=== PATIENT | male | born 1955 | race Caucasian/White ===

== ENCOUNTER 2017-02-11 08:48 | Day surgery (SDC) | payer MEDICARE ==
[~2017-02-11 08:48] MED LIST: LACTATED RINGERS 1,000 ML IV SCH
[2017-02-11 09:27] VITALS: RESP 18; TEMP 97.8
[2017-02-11] MEDS ORDERED: LIDOCAINE 1% 20 ML VIAL (10MG/ML) FOR IV START INTRADERMA ONE (09:30)
[2017-02-11 09:37] LABS: Glucose,Whole Blood 122 mg/dL (75-99)
[2017-02-11] MEDS ORDERED: TRIAMCINOLONE ACETONIDE 40 MG/ML 1 ML VIAL ONE (09:53)
[2017-02-11] MEDS ORDERED: MIDAZOLAM 2 MG/2 ML VIAL ONE (09:53)
[2017-02-11] MEDS ORDERED: fentaNYL (PF) 50 MCG/ML 2 ML AMP ONE (09:53)
[2017-02-11] MEDS ORDERED: BUPIVACAINE (PF) 0.5% 30 ML VIAL ONE (09:53)
--- NOTE | 2017-02-11 10:10 | P.PCN ---
Date of Procedure: 02/11/17 Procedure(s) Performed: PREOPERATIVE DIAGNOSIS : 1- Lumbar spondylosis with Facet Arthropathy without myelopathy . 2- Lumber degenerative disc disease POSTOPERATIVE DIAGNOSIS: 1- Lumbar spondylosis with Facet Arthropathy without myelopathy . 2- Lumber degenerative disc disease PROCEDURE: Diagnostic Right L3 -4 , L4 -5 , and L5-S1 medial branch block under fluoroscopy ANESTHESIA: Local with 1% lidocaine 6 ml ; IV sedation with Versed 2 mg and Fentanyl 100 mcg. EBL: Minimal COMPLICATION: None. IV FLUIDS: 100 mL of normal saline. PROCEDURE INDICATION: Chronic low back pain secondary to Facet arthropathy unresponsive to conservative treatment. PROCEDURE DESCRIPTION: the patient was seen and identified in the preop holding area , risks and benefits and possible complications of the procedure and alternative were discussed with the patient, and the patient agreed to proceed with the procedure and signed the consent IV was started and vital signs monitored during the procedure and fluoroscopy was used to maximize the benefit and accuracy of the needle placement, and sedation was given to decrease patient anxiety, patient was taken to the procedure room and placed in prone position vital signs monitored in the back prepped with chlorhexidine X3 then under strict sterile technique using a right oblique fluoroscopy ,the junction of the transverse process and the superior articulating process of the right L3- 4 , L4- 5, and L5-S1 vertebra which corresponding to the fluoroscopy image of the eye of the Chris dog on the block side for the medial branches and subsequently , after local infiltration of skin and subcu tissuies with lidocaine 1% one mL at each level ,then 22- gauge Quincke-type needles , 3 needle was used , each one of them placed at the junction of the base of the transverse process and the superior articular process at the appropriate level, and the needle was advanced until the periosteum contacted, needle placement confirmed with AP oblique and lateral view and after appropriate needle placement confirmed, and after negative aspiration for heme and CSF and there was no paresthesia 1-1/2 mL of Marcaine 0.5% mixed with 40 mg Kenalog , then half mL injected at each level after negative aspiration the needle subsequently removed intact. At the end of the procedure and the needles removed and a bandage applied after the skin was cleaned the cleaning solution patient taken to recovery room in stable condition and monitors in the recovery room for 20-30 minutes and discharged home in stable condition after discharge criteria met and patient will follow up with the pain clinic in 2-4 weeks
[2017-02-11] MEDS ORDERED: IV FLUID CONTINUATION 1,000 ML IV ONE (10:12)
--- NOTE | 2017-02-11 10:14 | FL ---
FLUOROSCOPY 3 seconds of fluoroscopy time were utilized during Pain Injection. 2 images document the procedure.
[2017-02-11 10:30] VITALS: BP 119/71; PULSE 70
== END 2017-02-11 10:53 | disposition home or self-care (01) ==
LOC: ORPAIN 08:48
PROVIDERS: ATTEND Specialist
DX: G89.29 Other chronic pain (principal); M47.816 Spondylosis without myelopathy or radiculopathy, lumbar region; M46.96 Unspecified inflammatory spondylopathy, lumbar region; M51.36 Other intervertebral disc degeneration, lumbar region; Z91.030 Bee allergy status; Z91.048 Other nonmedicinal substance allergy status
CPT/HCPCS: 64493; 64494; 64495; J2250; J3301; J3010

== ENCOUNTER → 2017-02-15 | Outpatient (CLI) | payer MEDICARE ==
--- NOTE | 2017-02-15 18:32 | MR ---
EXAMINATION TYPE: MR brain wo con DATE OF EXAM: 02/15/2017 6:00 PM COMPARISON: NONE HISTORY: Some memory loss, loss of hearing Left side, TECHNIQUE: Multiplanar, multisequence imaging of the brain and brainstem is performed without IV cont rast. FINDINGS: Diffusion weighted images demonstrate no evidence of a recent infarct or other diffusion abnormality. There is no extraaxial fluid collection or significant white matter signal abnormality. The ventricu lar system and cisternal spaces are normal in size and appearance. The brain volume is age appropria te. Midline structures demonstrate normal morphology. The craniocervical junction appears within normal limits. Normal vascular flow voids are present. The visualized sinuses are clear and the globes are i ntact. IMPRESSION: No significant finding is seen to account for patient's symptoms.
== END | disposition home or self-care (01) ==
LOC: RADMRIMAIN 17:32
PROVIDERS: ATTEND Family Medicine
DX: R41.3 Other amnesia (principal)
CPT/HCPCS: 70551

== ENCOUNTER → 2017-03-11 | Day surgery (SDC) | payer MEDICARE ==
[2017-03-01 10:00] VITALS: BMI 27.0
[~2017-03-11] MED LIST changes: +BUPIVACAINE (PF) 0.5% 30 ML VIAL ONE; +IV FLUID CONTINUATION 1,000 ML IV ONE; +LIDOCAINE 1% 20 ML VIAL (10MG/ML) FOR IV START INTRADERMA ONE; +MIDAZOLAM 2 MG/2 ML VIAL ONE; +TRIAMCINOLONE ACETONIDE 40 MG/ML 1 ML VIAL ONE; +fentaNYL (PF) 50 MCG/ML 2 ML AMP ONE
[2017-03-11 07:54] VITALS: TEMP 96.7
[2017-03-11 08:01] LABS: Glucose,Whole Blood 120 mg/dL (75-99)
--- NOTE | 2017-03-11 09:14 | P.PCN ---
Date of Procedure: 03/11/17 Preoperative Diagnosis: Postoperative Diagnosis: Procedure(s) Performed: PREOPERATIVE DIAGNOSIS : 1- Lumbar spondylosis with Facet Arthropathy without myelopathy . 2- Lumber degenerative disc disease POSTOPERATIVE DIAGNOSIS: 1- Lumbar spondylosis with Facet Arthropathy without myelopathy . 2- Lumber degenerative disc disease PROCEDURE: Diagnostic bilateral L3 -4 , L4 -5 , and L5-S1 medial branch block under fluoroscopy ANESTHESIA: Local with 1% lidocaine 6 ml ; IV sedation with Versed 2 mg and Fentanyl 100 mcg. EBL: Minimal COMPLICATION: None. IV FLUIDS: 100 mL of normal saline. PROCEDURE INDICATION: Chronic low back pain secondary to Facet arthropathy unresponsive to conservative treatment. Patient had the diagnostic block done on the right side 1 month ago, but he reported that a few days after the injection on started complaining of severe pain in both sides in the lumbar area , and examination was positive for facet loading test bilaterally, for this reason we discussed with the patient the option of doing diagnostic block bilaterally, PROCEDURE DESCRIPTION: the patient was seen and identified in the preop holding area , risks and benefits and possible complications of the procedure and alternative were discussed with the patient, and the patient agreed to proceed with the procedure and signed the consent IV was started and vital signs monitored during the procedure and fluoroscopy was used to maximize the benefit and accuracy of the needle placement, and sedation was given to decrease patient anxiety, patient was taken to the procedure room and placed in prone position vital signs monitored in the back prepped with chlorhexidine X3 then under strict sterile technique using a right oblique fluoroscopy ,the junction of the transverse process and the superior articulating process of the right L3- 4 , L4- 5, and L5-S1 vertebra which corresponding to the fluoroscopy image of the eye of the Chris dog on the block side for the medial branches and subsequently , after local infiltration of skin and subcu tissuies with lidocaine 1% one mL at each level ,then 22- gauge Quincke-type needles , 3 needle was used , each one of them placed at the junction of the base of the transverse process and the superior articular process at the appropriate level, and the needle was advanced until the periosteum contacted, needle placement confirmed with AP oblique and lateral view and after appropriate needle placement confirmed, and after negative aspiration for heme and CSF and there was no paresthesia 1-1/2 mL of Marcaine 0.5% mixed with 20 mg Kenalog , then half mL injected at each level after negative aspiration the needle subsequently removed and the same procedure repeated for the left side at left side at L3-4, L4- 5 and L5-S1 levels. At the end of the procedure and the needles removed and a bandage applied after the skin was cleaned the cleaning solution patient taken to recovery room in stable condition and monitors in the recovery room for 20-30 minutes and discharged home in stable condition after discharge criteria met and patient will follow up with the pain clinic in 2-4 weeks , if patient get good pain relief after the diagnostic block today ,then next visit we can do radiofrequency ablation of the medial branch lumbar area right side , before we can do the radiofrequency on the left side ,then we have to do second diagnostic block on the left side Implants: Indications for Procedure: Operative Findings: Description of Procedure:
[2017-03-11 09:30] VITALS: RESP 18
--- NOTE | 2017-03-11 09:30 | FL ---
EXAMINATION TYPE: FL guided pain mgmt statistic DATE OF EXAM: 03/11/2017 CLINICAL HISTORY: Low back pain. TECHNIQUE: Fluoroscopy. COMPARISON: None. FINDINGS: Fluoroscopic guidance was provided during pain relief procedure performed by Dr. Castanon . A total of 20 seconds of fluoroscopic time was utilized during the procedure and 4 spot images are acquired. Images acquired shows needle localization at multiple levels in the lower lumbar spine. IMPRESSION: As Above.
[2017-03-11 09:52] VITALS: BP 110/66; PULSE 63
[2017-03-11 10:09] LABS: Glucose,Whole Blood 115 mg/dL (75-99)
== END ==
LOC: ORPAIN 07:28
PROVIDERS: ATTEND Specialist
DX: G89.29 Other chronic pain (principal); M47.816 Spondylosis without myelopathy or radiculopathy, lumbar region; M46.96 Unspecified inflammatory spondylopathy, lumbar region; M51.36 Other intervertebral disc degeneration, lumbar region
CPT/HCPCS: 64493; 64494; 64495; 99152; 99153; J2250; J3301; J3010

== ENCOUNTER 2017-04-18 06:50 | Day surgery (SDC) | payer MEDICARE ==
[2017-04-13 09:09] VITALS: BMI 26.1
[2017-04-18] MEDS ORDERED: LACTATED RINGERS 1,000 ML IV SCH (07:30)
[2017-04-18 07:39] VITALS: RESP 16
[2017-04-18 07:40] VITALS: TEMP 97.7
[2017-04-18] MEDS ORDERED: LIDOCAINE 1% 20 ML VIAL (10MG/ML) FOR IV START INTRADERMA ONE (07:54)
[2017-04-18 08:00] LABS: Glucose,Whole Blood 123 mg/dL (75-99)
[2017-04-18] MEDS ORDERED: IV FLUID CONTINUATION 1,000 ML IV ONE (08:53)
--- NOTE | 2017-04-18 09:04 | FL ---
EXAMINATION TYPE: FL guided pain mgmt statistic DATE OF EXAM: 04/18/2017 CLINICAL HISTORY: Low back pain. TECHNIQUE: Fluoroscopy. COMPARISON: None. FINDINGS: Fluoroscopic guidance was provided during pain relief procedure performed by Dr. Hi . A total of 11 seconds of fluoroscopic time was utilized during the procedure and 3 spot images are ac quired. Images acquired shows needle localization at several levels off the midline in the lower lum bar spine. IMPRESSION: As Above.
[2017-04-18 09:38] VITALS: BP 117/68; PULSE 69
--- NOTE | 2017-04-18 10:04 | P.PCN ---
Date of Procedure: 04/18/17 Preoperative Diagnosis: Postoperative Diagnosis: Procedure(s) Performed: Implants: Surgeon: Christopher Hi Pathology: none sent Condition: stable Disposition: PACU Indications for Procedure: Operative Findings: Description of Procedure: PREOPERATIVE DIAGNOSIS: Lumbar spondylosis without myelopathy and facet arthropathy POSTOPERATIVE DIAGNOSIS: Lumbar spondylosis without myelopathy and facet arthropathy PROCEDURES: Right Radiofrequency thermocoagulation, L3-L4, L4-L5, and L5-S1 medial branch, with fluoroscopic guidance. ANESTHESIA: 1% lidocaine plain; Conscious sedation with versed/fentanyl EBL: Minimal PROCEDURE INDICATION: The patient with low back pain secondary to lumbar arthropathy who had more than 50% relief of pain with previous diagnostic lumbar medial branch block with bupivacaine. Patient presents for lumbar RFA today; no use of blood thinners. PROCEDURE DESCRIPTION / TECHNIQUE: The patient was seen and identified in the preoperative area. Risks, benefits, complications, and alternatives were discussed with the patient (including but not limited to incomplete pain relief , bleeding, infection, nerve damage, and allergies to medications), the patient agreed to proceed with the procedure and signed the consent after all questions were answered. Patient was taken to the OR and time out was completed to verify proper patient , position, laterality of pain, and allergies. Pt was placed in the prone position. IV was started. Vital signs remained stable throughout the procedure. A pillow was placed under the patients chest to decrease lordosis. The lumbosacral area was prepped and draped in the usual sterile fashion. Vital signs were closely monitored during the procedure. Conscious sedation was used during the procedure to decrease patients anxiety. Using AP and then oblique fluoroscopy, the eye of the Chris dog corresponding to the connection between the superior and transverse articular processes of right L4, L5 and top of the sacrum were identified, marked, and localized with 1% lidocaine. Subsequently, an 18 gauge, 100-mm radiofrequency cannula with a 10-mm active tip was advanced guided by fluoroscopy to each of the eyes of the Chris dog at right L3, L4, and L5 medial branches. Each site then underwent sensory testing at 50 Hz and 0 to 1 volt and motor testing at 2 Hz and 0 to 3 volt with local stimulation, but no radicular symptoms down the legs. Thereafter the right L3, L4, and L5 medial branch sites underwent radiofrequency thermocoagulation at 80 degrees Celsius for 90 seconds after injecting 0.5 ml of PF lidocaine 1%. After thermocoagulation, 1 ml of the block solution containing Kenalog 40 mg and 2 mL of preservative-free normal saline was injected at the right L3, L4, and L5 medial branch levels after negative aspiration of CSF and blood and with no paresthesias. Cannulas were retracted while injecting lidocaine 1% until the needles were removed. At the end of the procedure, the skin was cleansed and bandages were applied. COMPLICATIONS: No acute complications. DISPOSITION / PLANS: The patient was placed in a supine position and transferred to the recovery area in a stable condition for observation and was discharged from the recovery room after meeting discharge criteria. Home discharge instructions given to the patient by the staff. The patient was reexamined prior to discharge. The patient will schedule a left L3-S1 medial branch block in 4-6 weeks.
== END 2017-04-18 09:44 | disposition home or self-care (01) ==
LOC: ORPAIN 06:50
PROVIDERS: ATTEND Anesthesiology
DX: M47.816 Spondylosis without myelopathy or radiculopathy, lumbar region (principal); M46.96 Unspecified inflammatory spondylopathy, lumbar region; I10 Essential (primary) hypertension; E78.5 Hyperlipidemia, unspecified; Z79.1 Long term (current) use of non-steroidal anti-inflammatories (NSAID); Z79.82 Long term (current) use of aspirin; Z79.891 Long term (current) use of opiate analgesic; Z79.899 Other long term (current) drug therapy; Z91.030 Bee allergy status; Z91.048 Other nonmedicinal substance allergy status
CPT/HCPCS: 64635; 64636; 99152; J2250; J3010

== ENCOUNTER 2017-05-10 07:27 | Day surgery (SDC) | payer MEDICARE ==
[2017-05-03 15:57] VITALS: BMI 25.8
[~2017-05-10 07:27] MED LIST changes: -BUPIVACAINE (PF) 0.5% 30 ML VIAL ONE; -IV FLUID CONTINUATION 1,000 ML IV ONE; -LIDOCAINE 1% 20 ML VIAL (10MG/ML) FOR IV START INTRADERMA ONE; -MIDAZOLAM 2 MG/2 ML VIAL ONE; -TRIAMCINOLONE ACETONIDE 40 MG/ML 1 ML VIAL ONE; -fentaNYL (PF) 50 MCG/ML 2 ML AMP ONE
[2017-05-10 07:58] VITALS: TEMP 97.9
[2017-05-10] MEDS ORDERED: LIDOCAINE 1% 20 ML VIAL (10MG/ML) FOR IV START INTRADERMA ONE (07:58)
[2017-05-10 07:59] LABS: Glucose,Whole Blood 154 mg/dL (75-99)
--- NOTE | 2017-05-10 08:45 | P.PCN ---
Date of Procedure: 05/10/17 Preoperative Diagnosis: Lumbar spondylosis without myelopathy Postoperative Diagnosis: Same as above Procedure(s) Performed: Left lumbar medial branch block under fluoroscopic guidance for levels L2, L3, L4, and the dorsal ramus of L5 Implants: Anesthesia: other (Moderate conscious sedation with IV Versed) Surgeon: Vianey Yost Pathology: none sent Condition: stable Disposition: PACU Indications for Procedure: Operative Findings: Description of Procedure: The patient was seen in preop holding area consent was obtained then he was brought into the procedure room and placed in prone position. Skin was prepped with ChloraPrep and draped in a sterile manner. Lidocaine 1% was used to numb the skin up at the target points that were chosen as follows: The L5-S1 level was done first by targeting the superior medial aspect of the sacral ala on the left side of the spine on the AP view of fluoroscopy which corresponds to the dorsal ramus of L5 on the left side. And for the L2,L3 and L4 medial branches the target points were at the connection between the transverse process and the superior articular process of L3,L4 and L5 vertebra respectively on the left oblique view of fluoroscopy. I used 22-gauge 3-1/2 inch Quincke spinal needle for this procedure and after contacting bone at the target points mentioned above I injected 1 mL of Marcaine 0.5%. I did not use any steroids for this procedure and also did not give any IV fentanyl. Patient tolerated procedure well.
[2017-05-10 08:55] VITALS: RESP 18
--- NOTE | 2017-05-10 08:56 | FL ---
EXAMINATION TYPE: FL guided pain mgmt statistic DATE OF EXAM: 05/10/2017 HISTORY: Flouroscopy time 5 seconds of fluoroscopy provided. IMPRESSION: 1. Fluoroscopy time.
[2017-05-10 09:11] VITALS: BP 120/71; PULSE 63
[2017-05-10] MEDS ORDERED: IV FLUID CONTINUATION 1,000 ML IV ONE (09:11)
== END 2017-05-10 09:21 | disposition home or self-care (01) ==
LOC: ORPAIN 07:27
PROVIDERS: ATTEND Anesthesiology
DX: M47.816 Spondylosis without myelopathy or radiculopathy, lumbar region (principal); E78.5 Hyperlipidemia, unspecified; I10 Essential (primary) hypertension; Z79.82 Long term (current) use of aspirin; Z79.899 Other long term (current) drug therapy; Z79.84 Long term (current) use of oral hypoglycemic drugs; Z79.1 Long term (current) use of non-steroidal anti-inflammatories (NSAID); Z79.891 Long term (current) use of opiate analgesic
CPT/HCPCS: 64493; 64494; 64495; J2250; 99152

== ENCOUNTER → 2017-06-08 | Day surgery (SDC) | payer MEDICARE ==
[2017-06-03 08:38] VITALS: BMI 25.8
[~2017-06-08] MED LIST changes: +IV FLUID CONTINUATION 1,000 ML IV ONE; +LACTATED RINGERS 1,000 ML IV ONE; -LACTATED RINGERS 1,000 ML IV SCH; +LIDOCAINE 1% 20 ML VIAL (10MG/ML) FOR IV START INTRADERMA ONE
[2017-06-08 08:05] VITALS: TEMP 97.8
[2017-06-08 08:18] LABS: Glucose,Whole Blood 135 mg/dL (75-99)
--- NOTE | 2017-06-08 09:24 | P.PCN ---
Date of Procedure: 06/08/17 Preoperative Diagnosis: Postoperative Diagnosis: Procedure(s) Performed: Implants: Surgeon: Vianey Yost Pathology: none sent Condition: stable Disposition: PACU Indications for Procedure: Operative Findings: Description of Procedure: PREOPERATIVE DIAGNOSIS: Lumbar spondylosis without myelopathy, morbid obesity POSTOPERATIVE DIAGNOSIS: Lumbar spondylosis without myelopathy,morbid obesity PROCEDURES : Left Radiofrequency thermocoagulation,L2-4, L3-L4, L4-L5, and L5- S1 medial branch, with fluoroscopic guidance ANESTHESIA: IV sedation with versed and fentaneyl and local infiltration with lidocaine 1% 5 ml EBL: Minimal PROCEDURE INDICATION: The patient with low back pain secondary to lumbar facet arthropathy who had more than 50% relief of her pain with previous diagnostic lumbar medial branch block with bupivacaine. PROCEDURE DESCRIPTION / TECHNIQUE: The patient was seen and identified in the preoperative area. Risks, benefits, complications, including but not limited to risk of infection ,bleeding , allergic reactions to the medications and no complete pain releife , and alternatives were discussed with the patient, the patient agreed to proceed with the procedure and signed the consent. IV was started. Vital signs remained stable throughout the procedure. Patient was taken to the OR and time out was completed. The patient was placed in the prone position on the procedure table. The lumber area was prepped and draped in the usual sterile fashion. . Vital signs were closely monitored during the procedure .IV sedation was used during the procedure to decrease patients anxiety. The target points were identified as follows: For the L5-S1 level which corresponds to the dorsal ramus of L5 the target point was at the superior medial aspect of the sacral ala on the left side of the spine on the AP view of fluoroscopy and for the L2, L3, and L4 medial branches the target points were at the connection between the transverse process and the superior articular process of L3, L4, and L5 vertebra respectively on the left oblique view of fluoroscopy. skin was marked, and localized with 1% lidocaineat these points. Subsequently, an 18 [id number] radiofrequency needles with a 10-mm curved active tips were advanced guided by fluoroscopy to each of the target points mentioned above in a superior medial direction to get the active tips as parallel as possible to the medial branches tracks. Each level then underwent motor testing at 2.5 Hz and 0 to 3 volt with local stimulation, but no radicular symptoms down the legs. Thereafter radiofrequency thermocoagulation at 80 degrees celsius for 90 seconds after injecting 1 ml of PF Marcaine 0.5%(3 mls) with 40 mg of Kenalog. At the end of the procedure, the skin was cleansed and bandages were applied. COMPLICATIONS: No acute complications. DISPOSITION / PLANS: The patient was placed in a supine position and transferred to the recovery area in a stable condition for observation and was discharged from the recovery room after meeting discharge criteria. Home discharge instructions given to the patient by the staff. The patient was reexamined prior to discharge. The patient will schedule a follow up in the clinic in 2-4 weeks.
[2017-06-08 09:36] VITALS: RESP 16
[2017-06-08 09:56] VITALS: BP 126/70; PULSE 66
--- NOTE | 2017-06-08 10:04 | FL ---
Fluoroscopy HISTORY: Pain 16 seconds fluoroscopy time supplied to the referring clinician. 3 intraoperative C-arm images docum ent the procedure. See dictated report from anesthesia.
--- NOTE | 2017-06-11 09:18 | CDI ---
Documentation Clarification OP Dear Dr. Yost, Please provide clarification regarding the type of sedation provided. The procedure note states IV Sedation with Versed and Fentanyl. The Pain Procedure Record has nothing checked or circled under Anesthesia Plan. Please clarify if GA/Unconscious sedation or Moderate/conscious sedation was provided. PLEASE RESPOND TO THIS QUERY BY DICTATING AN ADDENDUM TO YOUR PROCEDURE NOTE. Thank you for your assistance, KAERL Altman If you have any questions, please contact Amber Myers at [phone] [facility]
== END ==
LOC: ORPAIN 07:17
PROVIDERS: ATTEND Anesthesiology
DX: M47.816 Spondylosis without myelopathy or radiculopathy, lumbar region (principal); E66.01 Morbid (severe) obesity due to excess calories; Z68.25 Body mass index [BMI] 25.0-25.9, adult; I10 Essential (primary) hypertension; E11.9 Type 2 diabetes mellitus without complications
CPT/HCPCS: 99152; 99153; 64635; 64636 ×3; J2250; J3301; J3010

== ENCOUNTER → 2018-02-01 | Outpatient (CLI) | payer MEDICARE ==
--- NOTE | 2018-02-01 22:02 | US ---
EXAMINATION TYPE: US kidneys/renal and bladder DATE OF EXAM: 02/01/2018 COMPARISON: NONE CLINICAL HISTORY: 62-year-old male R94.4 Abnormal Results of Kidney Function Stuidies. Abnormal labs, diabetic, hx of renal stones with laser performed on right kidney TECHNIQUE: Multiple sonographic images of the kidneys and bladder are obtained. EXAM MEASUREMENTS: Right Kidney: 9.5 x 4.0 x 4.6 cm Left Kidney: 10.6 x 4.0 x 5.6 cm Right Kidney: Echogenic foci measuring up to 6 mm with no shadowing. However, these areas demonstrate twinkle artifact. No hydronephrosis. Left Kidney: No hydronephrosis. Bladder: Underdistention limits its evaluation. Bilateral Jets not seen IMPRESSION: 1. Numerous nonobstructive right-sided renal calculi measuring up to 6 mm. 2. No hydronephrosis on either side.
== END | disposition home or self-care (01) ==
LOC: RADUSWWP 14:38
PROVIDERS: ATTEND Family Medicine
DX: N20.0 Calculus of kidney (principal)
CPT/HCPCS: 76770

== ENCOUNTER → 2018-02-13 | Outpatient (CLI) | payer MEDICARE ==
[2018-02-13 12:21] VITALS: BP 109/68; PULSE 80; RESP 18
--- NOTE | 2018-02-13 12:42 | P.PN ---
Subjective Progress Note Date: 02/13/18 Principal diagnosis: Lumbar spondylosis without myelopathy This is a 62-year-old male with history of axial lower back pain that responded favorably to lumbar radio frequency ablation. The patient is here today for his lower back pain and for more recent neck pain. His pain on the left side of his neck that goes down to the left shoulder with no weakness in the upper or lower extremities and no bowel or bladder dysfunction. The neck pain does not wake him up at night. He denies any weight loss recently however his been following up for decreased kidney function lately. By physical exam he is alert oriented 3 in no apparent distress He has tenderness on the left side of his neck Neuro exam of the upper extremities showed normal muscle strength but absent deep tendon flexes bilaterally and symmetrically He has tenderness on both sides of his lumbar spine He has normal range of motion of the cervical spine with more pain with left rotation Objective - Vital Signs Vital signs: Vital Signs Temp Pulse 80 02/13/18 12:15 Resp 18 02/13/18 12:15 BP 109/68 02/13/18 12:15 Pulse Ox 96 02/13/18 12:15 Intake & Output 02/12/18 02/13/18 02/13/18 18:59 06:59 18:59 Weight 78.925 kg - Constitutional General appearance: Present: average body habitus - EENT Eyes: Present: PERRLA - Psychiatric Psychiatric: Present: A&O x's 3, appropriate affect, intact judgment & insight Assessment and Plan Plan: This is a 62-year-old male with the following diagnoses: Lumbar spondylosis without myelopathy Cervical spondylosis without myelopathy The patient has numbness in the right hand due to a carpal tunnel syndrome Diabetes mellitus Hypertension Kidney dysfunction He does have severe neck pain however with no neurologic changes in the upper or lower extremities. Regarding his neck pain I will order a cervical spine MRI without contrast For his lower back pain and since he responded to previous due to lumbar medial branch RFA I will schedule him to have right lumbar medial branch RFA as soon as possible. We will reevaluate the patient in a few weeks for his neck pain after we get the MRI results.
== END | disposition home or self-care (01) ==
LOC: PNWHC3 10:49
PROVIDERS: ATTEND Anesthesiology
DX: M47.816 Spondylosis without myelopathy or radiculopathy, lumbar region (principal); M47.812 Spondylosis without myelopathy or radiculopathy, cervical region; G56.03 Carpal tunnel syndrome, bilateral upper limbs; E11.9 Type 2 diabetes mellitus without complications; I10 Essential (primary) hypertension; N28.9 Disorder of kidney and ureter, unspecified
CPT/HCPCS: 99211

== ENCOUNTER → 2018-02-13 | Outpatient (CLI) | payer MEDICARE ==
--- NOTE | 2018-02-13 10:46 | XR ---
EXAMINATION TYPE: XR KUB DATE OF EXAM: 02/13/2018 10:23 AM CLINICAL HISTORY: Right-sided kidney stone. TECHNIQUE: Single supine KUB image of the abdomen is obtained. COMPARISON: Abdominal x-ray March 10, 2016. CT abdomen and pelvis February 19, 2016. FINDINGS: No definite nephrolithiasis on current study. Some rounded densities in the periphery could reflect ingested colonic food product or fecal debris as are seen bilaterally. There is vascular janett cification in the pelvis redemonstrated. There is left-sided pelvic phlebolith redemonstrated. There is overall nonobstructive bowel gas pattern. There is dextroconvex scoliosis with moderate to s evere multilevel spurring in the spine. Calcifications in the liver and spleen are partially imaged p resumed product of old granulomatous disease. IMPRESSION: No definitive new nephrolithiasis.
== END | disposition home or self-care (01) ==
LOC: RADXRMAIN 10:12
PROVIDERS: ATTEND Urology
DX: N20.0 Calculus of kidney (principal)
CPT/HCPCS: 74018

== ENCOUNTER → 2018-03-02 | Outpatient (CLI) | payer MEDICARE ==
--- NOTE | 2018-03-02 15:37 | XR ---
EXAMINATION TYPE: XR cervical spine limited DATE OF EXAM: 03/02/2018 COMPARISON: NONE HISTORY: Cephalgia radiating to shoulders TECHNIQUE: 4 view cervical spine FINDINGS: There is disc space narrowing C5-6 C6-7. Prevertebral space is normal. Posterior spinal sexton ellar line is intact. Tip of the odontoid is limited on the frontal view. Submental vertex view is mo re normal appearance. IMPRESSION: 1. Degenerative disc changes lower cervical spine.
== END | disposition home or self-care (01) ==
LOC: RADXRMAIN 14:53
PROVIDERS: ATTEND Anesthesiology
DX: M47.812 Spondylosis without myelopathy or radiculopathy, cervical region (principal)
CPT/HCPCS: 72040

== ENCOUNTER → 2018-03-10 | Outpatient (CLI) | payer MEDICARE ==
--- NOTE | 2018-03-10 10:21 | XR ---
EXAMINATION TYPE: XR KUB DATE OF EXAM: 03/10/2018 8:47 AM CLINICAL HISTORY: Lithotripsy on 03/06/2018. Right-sided nephrolithiasis. TECHNIQUE: Single supine KUB image of the abdomen is obtained. COMPARISON: 02/13/2018. FINDINGS: There appears to be 3 stable calculi that could represent gallstones or colonic debris. The se appear slightly cephalad to represent renal calculi, however renal calculi are possible. The large st measures 6 mm. No left-sided renal calculi are identified. Again there is a dextroscoliotic curvat ure of the lumbar spine and extensive degenerative changes. Moderate femoral acetabular arthropathy i s seen. Moderate amount of retained colonic stool is also noted in a nondilated colon. IMPRESSION: Three punctate right upper quadrant calculi appearing stable from the prior of 02/13/2018. These could represent cholelithiasis, colonic debris (less likely) or residual renal calculi. The largest measur es 6 mm.
== END | disposition home or self-care (01) ==
LOC: RADXRMAIN 08:34
PROVIDERS: ATTEND Urology
DX: N20.0 Calculus of kidney (principal)
CPT/HCPCS: 74018

== ENCOUNTER 2018-03-20 08:27 | Day surgery (SDC) | payer MEDICARE ==
[2018-03-15 10:29] VITALS: BMI 26.1
[~2018-03-20 08:27] MED LIST changes: -IV FLUID CONTINUATION 1,000 ML IV ONE; -LACTATED RINGERS 1,000 ML IV ONE; +LACTATED RINGERS 1,000 ML IV SCH; -LIDOCAINE 1% 20 ML VIAL (10MG/ML) FOR IV START INTRADERMA ONE
[2018-03-20] MEDS ORDERED: LIDOCAINE 1% 20 ML VIAL (10MG/ML) FOR IV START INTRADERMA ONE (08:42)
[2018-03-20 08:58] VITALS: TEMP 97
[2018-03-20 09:12] LABS: Glucose,Whole Blood 133 mg/dL (75-99)
--- NOTE | 2018-03-20 10:05 | P.PCN ---
Date of Procedure: 03/20/18 Procedure(s) Performed: PREOPERATIVE DIAGNOSIS: 1-Lumbar Spondylosis with Facet Arthropathy without myelopathy. 2- Lumber degenerative disc disease. POSTOPERATIVE DIAGNOSIS: 1- Lumbar Spondylosis with Facet Arthropathy without myelopathy. 2- Lumber degenerative disc disease. PROCEDURES : Right Radiofrequency thermocoagulation, L3-L4, L4-L5, and L5-S1 medial branch, with fluoroscopic guidance ANESTHESIA: Moderate sedation with intravenous versed 2 mg, and fentaneyl 100 mcg and local infiltration with lidocaine 1% 3 ml EBL: Minimal PROCEDURE INDICATION: The patient with low back pain secondary to lumbar facet arthropathy who had more than 50% relief of her pain with previous diagnostic lumbar medial branch block with bupivacaine. PROCEDURE DESCRIPTION / TECHNIQUE: The patient was seen and identified in the preoperative area. Risks, benefits, complications, including but not limited to risk of infection ,bleeding , allergic reactions to the medications and no complete pain releife , and alternatives were discussed with the patient, the patient agreed to proceed with the procedure and signed the consent. IV was started. Vital signs remained stable throughout the procedure. Patient was taken to the OR and time out was completed. The patient was placed in the prone position on the procedure table. The lumber area was prepped and draped in the usual sterile fashion. . Vital signs were closely monitored during the procedure .IV sedation was used during the procedure to decrease patients anxiety. Using AP and then oblique fluoroscopy, the ``eye of the Chris dog corresponding to the connection between the superior and transverse articular processes of right L3, L4, and L5 were identified, marked, and localized with 1 % lidocaine. Subsequently, a 18 -eu radiofrequency cannula with a 10- mm active tip was advanced guided by fluoroscopy to each of the ``eyes of the Chris dog at right L3, L4, and L5. Each site then underwent sensory testing at 50 Hz and 0 to 1 volt and motor testing at 2.5 Hz and 0 to 3 volt with local stimulation, but no radicular symptoms down the legs. Thereafter the right L3-4, L4-5, and L5-S1 sites underwent radiofrequency thermocoagulation at 80 degrees celsius for 90 seconds after injecting 0.5 ml of PF lidocaine 1%. then After the thermocoagulation done , 1 ml of the block solution containing Kenalog 40 mg and 3 ml of marcain 0.5% was injected at the right L3-4 , L4-5 , and L5-S1, levels after negative aspiration of CSF and blood and with no paresthesias. Cannulas were retracted while injecting lidocaine 1% until the needle is out. At the end of the procedure, the skin was cleansed and bandages were applied. COMPLICATIONS: No acute complications. DISPOSITION / PLANS: The patient was placed in a supine position and transferred to the recovery area in a stable condition for observation and was discharged from the recovery room after meeting discharge criteria. Home discharge instructions given to the patient by the staff. The patient was reexamined prior to discharge. The patient will schedule a follow up in the clinic in 2-4 weeks.
[2018-03-20] MEDS ORDERED: IV FLUID CONTINUATION 350 ML IV ONE (10:20)
[2018-03-20 10:26] VITALS: RESP 18
[2018-03-20 10:33] VITALS: BP 98/60; PULSE 69
--- NOTE | 2018-03-20 10:59 | FL ---
EXAMINATION TYPE: FL guided pain mgmt statistic DATE OF EXAM: 03/20/2018 CLINICAL HISTORY: Low back pain. TECHNIQUE: Fluoroscopy. COMPARISON: None. FINDINGS: Fluoroscopic guidance was provided during pain relief procedure performed by Dr. Castanon . A total of 4 seconds of fluoroscopic time was utilized during the procedure and 3 spot images are acquired. Images acquired shows needle localization at multiple levels in the lumbar spine. IMPRESSION: As Above.
== END 2018-03-20 10:50 | disposition home or self-care (01) ==
LOC: ORPAIN 08:27
PROVIDERS: ATTEND Specialist
DX: M47.816 Spondylosis without myelopathy or radiculopathy, lumbar region (principal); M51.36 Other intervertebral disc degeneration, lumbar region; I10 Essential (primary) hypertension; E11.9 Type 2 diabetes mellitus without complications; Z91.030 Bee allergy status; Z88.8 Allergy status to other drugs, medicaments and biological substances; Z91.048 Other nonmedicinal substance allergy status
CPT/HCPCS: 64635; 64636 ×2; J2250; J3301; J3010; 99152

== ENCOUNTER 2018-04-06 06:31 | Day surgery (SDC) | payer MEDICARE ==
[2018-03-30 16:04] VITALS: BMI 26.6
[2018-04-06] MEDS ORDERED: LACTATED RINGERS 1,000 ML IV SCH (07:15)
[2018-04-06 07:27] VITALS: TEMP 97.7
[2018-04-06] MEDS ORDERED: LIDOCAINE 1% 20 ML VIAL (10MG/ML) FOR IV START INTRADERMA ONE (07:28)
[2018-04-06 07:32] LABS: Glucose,Whole Blood 128 mg/dL (75-99)
--- NOTE | 2018-04-06 08:06 | P.PCN ---
Date of Procedure: 04/06/18 Surgeon: Chet Ann Description of Procedure: Procedure(s) Performed: PREOPERATIVE DIAGNOSIS: 1. Lumbar Spondylosis with Facet Arthropathy without myelopathy. 2-. Lumber degenerative disc disease POSTOPERATIVE DIAGNOSIS: 1. Lumbar Spondylosis with Facet Arthropathy without myelopathy. 2-. Lumber degenerative disc disease PROCEDURES: Left Radiofrequency thermocoagulation, L4,L5, Sacral Ala medial branch, with fluoroscopic guidance SURGEON: Chet Ann MD. ANESTHESIA: Moderate sedation with intravenous versed 2 mg and fentanyl 100 mcg and local infiltration with lidocaine 1% 4 ml EBL: Minimal PROCEDURE INDICATION: The patient with low back pain secondary to lumbar facet arthropathy who had more than 50% relief of pain with previous diagnostic lumbar medial branch block with bupivacaine. PROCEDURE DESCRIPTION / TECHNIQUE: The patient was seen and identified in the preoperative area. Risks, benefits, complications, including but not limited to risk of infection ,bleeding , allergic reactions to the medications and incomplete pain relief , and alternatives were discussed with the patient, the patient agreed to proceed with the procedure and signed the consent. IV was started. The operative site was marked. Patient was taken to the OR and time out was completed. The patient was placed in the prone position on the procedure table. The lumber area was prepped and draped in the usual sterile fashion. . Vital signs were closely monitored during the procedure .IV sedation was used during the procedure to decrease patients anxiety. Using AP and then oblique fluoroscopy, the ``eye of the Chris dog corresponding to the connection between the superior and transverse articular processes of the above-mentioned levels were identified, marked, and localized with 1% lidocaine. Subsequently, a 18 [id number] radiofrequency cannula with a 10-mm active tip was advanced guided by fluoroscopy to each of the ``eyes of the Chris dog at each site then underwent sensory testing at 50 Hz and 0 to 1 volt and motor testing at 2.5 Hz and 0 to 3 volt with local stimulation, but no radicular symptoms down the legs. Then the sites underwent radiofrequency thermocoagulation at 80 degrees celsius for 90 seconds after injecting 0.5 ml of PF lidocaine 1%. then After the thermocoagulation done , 1 ml of the block solution containing depomedrol 40 mg and 4 ml of maraine 0.5 % was injected at each levels after negative aspiration of CSF and blood and with no paresthesias. Cannulas were retracted while injecting lidocaine 1% until the needle is out.. At the end of the procedure, the skin was cleansed and bandages were applied. COMPLICATIONS: No acute complications. DISPOSITION / PLANS: The patient was placed in a supine position and transferred to the recovery area in a stable condition for observation and was discharged from the recovery room after meeting discharge criteria. Home discharge instructions given to the patient by the staff. The patient was reexamined prior to discharge. He will follow-up in the clinic on an as-needed basis. He does report good relief from his right-sided radio frequency ablation which was performed recently..
[2018-04-06 08:16] VITALS: RESP 16
--- NOTE | 2018-04-06 08:21 | FL ---
EXAMINATION TYPE: FL guided pain mgmt statistic DATE OF EXAM: 04/06/2018 COMPARISON: NONE HISTORY: Back pain TECHNIQUE: Fluoroscopy. FINDINGS/IMPRESSION: Fluoroscopic guidance was provided during procedure performed by Dr. nAn. A total of 5 seconds of fluoroscopic time was utilized during the procedure and 2 spot images was acqu ired demonstrating multilevel localization of the lumbar spine.
[2018-04-06 08:33] VITALS: BP 131/65; PULSE 68
== END 2018-04-06 09:08 | disposition home or self-care (01) ==
LOC: ORPAIN 06:31
PROVIDERS: ATTEND Pain Medicine Pain Medicine
DX: M51.36 Other intervertebral disc degeneration, lumbar region (principal); M47.816 Spondylosis without myelopathy or radiculopathy, lumbar region; M19.90 Unspecified osteoarthritis, unspecified site; E11.9 Type 2 diabetes mellitus without complications; Z91.030 Bee allergy status; Z88.8 Allergy status to other drugs, medicaments and biological substances; Z79.84 Long term (current) use of oral hypoglycemic drugs
CPT/HCPCS: 64635; 64636 ×2; J2250; J1030; J2001; J3010; 99152

== ENCOUNTER → 2018-04-25 | Outpatient (CLI) | payer MEDICARE ==
--- NOTE | 2018-04-25 14:24 | XR ---
EXAMINATION TYPE: XR cervical spine limited DATE OF EXAM: 04/25/2018 CLINICAL HISTORY: pain TECHNIQUE: 3 views of the cervical spine are submitted. COMPARISON: None. FINDINGS: There is satisfactory in alignment without evidence of acute fracture or dislocation. The pre-vertebral soft tissue appears within normal limits. Moderate degenerative disc space narrowing a t C5-6 and C6-7 with ventral and dorsal spondylosis. The C1-C2 articulation is unremarkable on the op en mouth view. IMPRESSION: No acute fracture or dislocation is seen in the cervical spine.
== END | disposition home or self-care (01) ==
LOC: RADXRMAIN 13:42
PROVIDERS: ATTEND Anesthesiology
DX: M43.02 Spondylolysis, cervical region (principal)
CPT/HCPCS: 72040

== ENCOUNTER → 2018-05-01 | Outpatient (CLI) | payer MEDICARE ==
[2018-05-01 12:15] VITALS: BP 128/71; PULSE 78; RESP 18; TEMP 98.1
--- NOTE | 2018-05-01 12:46 | P.PN ---
Subjective Progress Note Date: 05/01/18 Principal diagnosis: Cervical and lumbar spondylosis This is a 62-year-old gentleman with history of neck and lower back pain. His neck pain has been getting better over the last few weeks. He had plain x-ray of the cervical spine which showed moderate degenerative disc disease. His lower back pain also is doing much better after the RFA and he rates his pain at 3 out of 10 today on the right side of his lower back. He denies any bowel or bladder dysfunction or any weakness in the upper or lower extremities. He feels slight numbness in the tips of fingers. Objective - Vital Signs Vital signs: Vital Signs Temp 98.1 F 05/01/18 12:11 Pulse 78 05/01/18 12:11 Resp 18 05/01/18 12:11 BP 128/71 05/01/18 12:11 Pulse Ox Intake & Output 04/30/18 05/01/18 05/01/18 18:59 06:59 18:59 Weight 75.296 kg - Constitutional General appearance: Present: average body habitus - EENT Eyes: Present: PERRLA - Respiratory Respiratory: bilateral: CTA - Cardiovascular Rhythm: regular - Neurologic Neurologic: Present: CNII-XII intact - Musculoskeletal Musculoskeletal: Present: gait normal - Psychiatric Psychiatric: Present: A&O x's 3, appropriate affect Assessment and Plan Plan: Mr. Amaya is doing very well. He uses Motrin 800 mg as needed for his pain. He can be seen in our clinic on an as-needed basis.
== END | disposition home or self-care (01) ==
LOC: PNWHC3 12:00
PROVIDERS: ATTEND Anesthesiology
DX: M47.812 Spondylosis without myelopathy or radiculopathy, cervical region (principal); M47.816 Spondylosis without myelopathy or radiculopathy, lumbar region; Z79.1 Long term (current) use of non-steroidal anti-inflammatories (NSAID)
CPT/HCPCS: 99211

== ENCOUNTER → 2019-01-18 | Outpatient (CLI) | payer MEDICARE ==
--- NOTE | 2019-01-19 07:40 | MR ---
EXAMINATION TYPE: MR lumbar spine wo con DATE OF EXAM: 01/18/2019 COMPARISON: 08/06/2016 MRI HISTORY: Radiculopathy, Lumbar region CONTRAST: 0 mL intravenous Gadavist. TECHNIQUE: Multiplanar, multisequence images of the lumbar spine were acquired. FINDINGS: Scoliosis is present. There is disc desiccation throughout the lumbar spine. Disc space na rrowing is noted C3-4 to lesser degree through the remaining levels. L5-S1: Mild disc bulge is present. Mild anterior thecal sac contact is present. No spinal canal steno sis is present. There is moderate right foraminal narrowing due to facet hypertrophy and disc bulge. L4-L5: Disc bulge extends into the right foramen. There is severe right foraminal stenosis. Facet hyp ertrophy and ligamentum flavum laxity contributing to the narrowing. No AP spinal canal stenosis pres ent. Mild disc bulge is anterior thecal sac flattening. L3-L4: Mild facet hypertrophy is present. This has some right posterior lateral thecal sac compressio n. Mild disc bulge has anterior thecal sac contact. No AP spinal canal stenosis is present. There is severe left foraminal stenosis. The right foramen is patent. L2-L3: Mild disc bulge has anterior thecal sac contact. No AP spinal canal stenosis is present. Right foramen is patent. Left foramen is mild to moderate foraminal narrowing. L1-L2: Mild disc bulge is anterior thecal sac contact. Facet hypertrophy is present. No spinal canal stenosis is present. There is mild left foraminal narrowing due to disc bulging. The right foramen is patent. T12-L1: Mild disc bulge is present with anterior thecal sac compression. No AP spinal canal stenosis present. Neural foramen have mild narrowing bilaterally. IMPRESSION: 1. Multilevel disc bulging with anterior thecal sac compression. No stenosis is present. 2. Right lateral disc bulging at L5-S1 has extension into the foramen contributing to severe right L5 -S1 foraminal stenosis. 3. Scoliosis and disc bulging with facet hypertrophy contributing to multilevel foraminal stenosis. T his appears severe on the right at L5-S1, on the right at L4-5, on the left at L3-4, and more mild to moderate foraminal narrowing L2-3, L1-2 on the left. 4. Multilevel disc bulging with narrowing of the disc heights are similar to prior study. Foraminal s tenosis appears similar.
== END | disposition home or self-care (01) ==
LOC: RADMRIMAIN 15:34
PROVIDERS: ATTEND Family Medicine
DX: M48.07 Spinal stenosis, lumbosacral region (principal); M51.17 Intervertebral disc disorders with radiculopathy, lumbosacral region; M41.87 Other forms of scoliosis, lumbosacral region
CPT/HCPCS: 72148

== ENCOUNTER → 2019-06-13 | Outpatient (CLI) | payer MEDICARE ==
--- NOTE | 2019-06-13 13:41 | US ---
EXAMINATION TYPE: US kidneys/renal and bladder DATE OF EXAM: 06/13/2019 COMPARISON: 01/2018 CLINICAL HISTORY: N18.3 Stage 3 Chronic Kidney Disease. EXAM MEASUREMENTS: Right Kidney: 9.3 x 4.0 x 3.7 cm Left Kidney: 9.7 x 4.5 x 3.7 cm Post Void Residual Volume: 3.2 mL Right Kidney: small calculi, 0.4 cm, mid/lower, upper/mid 0.4 cm. Prominent renal pelvis/very mild h ydronephrosis. Left Kidney: No hydronephrosis or masses seen Bladder: claculi rt side of bladder twinkle effect 0.8 cm Bilateral Jets seen: rt jet Normal Post Void Residual: Yes There is no evidence for hydronephrosis at this point in time. No masses are identified. The urinary bladder is anechoic. Bilateral ureteral jets are not seen. IMPRESSION: 1. There is an 8 mm urinary bladder calculus at the right lateral aspect of the urinary bladder with very mild right-sided hydronephrosis. Right ureteral jet is seen and partially obstructing distal janett culus at the right ureterovesicular junction is possible. 2. Multiple nonobstructing 4 mm right renal calculi.
== END | disposition home or self-care (01) ==
LOC: RADUSWWP 12:50
PROVIDERS: ATTEND Internal Medicine Nephrology
DX: N13.2 Hydronephrosis with renal and ureteral calculous obstruction (principal); N21.0 Calculus in bladder
CPT/HCPCS: 76770

== ENCOUNTER → 2019-07-03 | Outpatient (CLI) | payer MEDICARE ==
--- NOTE | 2019-07-03 10:04 | XR ---
EXAMINATION TYPE: XR KUB DATE OF EXAM: 07/03/2019 HISTORY: Pain Comparison: March 10, 2018Single KUB is submitted for interpretation. Findings: Right renal calculi: 5 mm calculus upper pole right kidney. Right ureteral calculi: None Visualized. Left renal calculi: 3 mm calculus upper pole left kidney. Left ureteral calculi: None Visualized. Pelvic calcifications: Probable phleboliths noted. Bowel gas pattern is unremarkable. No free air. No mass effects. IMPRESSION: 1. Bilateral nephrolithiasis.
== END | disposition home or self-care (01) ==
LOC: RADXRMAIN 08:08
PROVIDERS: ATTEND Urology
DX: N20.0 Calculus of kidney (principal)
CPT/HCPCS: 74018

== ENCOUNTER → 2020-12-03 | Outpatient (CLI) | payer MEDICARE ==
--- NOTE | 2020-12-03 10:00 | P.PAINPG ---
Subjective Progress Note Date: 12/03/20 This is a 65-year-old gentleman with history of neck and lower back pain. His neck pain has been getting better over the last few weeks. He had plain x-ray of the cervical spine which showed moderate degenerative disc disease. We've not seen him since 2018. We have done left L3-L4 L4-L5 and L5-S1 RFA as well as the same procedure on the right side at the same levels. There are very effective and he is returning for follow-up. Since we last saw him patient had spinal cord stimulator implanted. He notes that he is nearly 80% relief from his waist up and is very satisfied with the device. Currently he is having pain in the right low back with radiation down the right lower extremity in the posterior aspect stopping at the knee. Pain is described as sharp and stabbing occasional weakness in the right lower extremity. He notes that this pain is significantly different than the ones he had prior to his RFA. In addition to above, 13-point review of systems is also negative for chest pain, shortness of breath, changes in vision, changes in hearing, new onset weakness, abdominal pain, diarrhea, extreme fatigue, malaise, fever, skin changes, homicidal or suicidal ideation, or bowel or bladder incontinence. Physical exam: Vital Signs: Reviewed in EMR GENERAL: Well appearing, in no acute distress PSYCH: Mood and affect is appropriate. Awake, alert, and oriented SKIN: Skin color, texture, turgor normal, no rashes or lesions HEENT: Normocephalic, atraumatic. EOM intact CV: No pedal edema RESP: Respirations are unlabored, no audible wheezing GI: Abdomen non-distended MUSCULOSKELETAL:SCS generator site c/d/i Bilateral upper and lower extremity strength is normal and symmetric. No atrophy or tone abnormalities are noted. Lumbar spine: Straight leg raising in the sitting position is positive on the right side. mild pain to palpation over the lumbar spine and paraspinous muscleson right side Negative for pain with facet loading and back extension/rotation. Normal range of motion without pain reproduction Extremities: Peripheral joint ROM is full and pain free without obvious instability or laxity in all four extremities. No edema or skin discolorations noted. Gait: Gait is normal NEUR: Bilateral upper and lower extremity coordination and muscle stretch reflexes are physiologic and symmetric. Negative clonus. No loss of sensation is noted. Cranial nerves are grossly intact. Imaging: MRI Lumbar Spine 01/2019 At L5-S1 there is moderate right foraminal narrowing due to facet hypertrophy and disc bulge. At L4-L5 there is severe right foraminal stenosis with facet hypertrophy and ligamentum flavum laxity contributing to the narrowing. Assessment: 1. Low back pain s/p SCS 2. L5 radiculopathy Plan: - We will schedule him for right-sided L5-S1 transforaminal epidural steroid injection. It seems his axial pain is resolved to the spinal cord stimulator. I spent 35 minutes reviewing the patient's chart, going over patient's medications, talking to the patient, and discussing plan of care PQRS Measure Charge Sheet PQRS Narrative: Smoking Status Never smoker Pain Intensity [Right Buttock] 2 Scale Used Numeric (1 - 10) Hx Alcohol Use (MH) No Home Medications: Ambulatory Orders Aspirin 81 mg PO DAILY 07/16/14 Atorvastatin [Lipitor] 40 mg PO DAILY 07/16/14 sitaGLIPtin PHOS/metFORMIN HCL [Janumet 50-1,000 mg Tablet] 1 each PO BID 0 02/13/16 Ferrous Sulfate [Iron (65 MG Elemental)] 325 mg PO DAILY 02/13/18 Acetaminophen [Tylenol] 500 - 1,000 mg PO Q4-6H PRN 12/01/20 lisinopriL [Zestril] 2.5 mg PO DAILY 12/01/20 Controlled Substance Measures - Controlled Substance Measures Is patient prescribed a controlled substance at discharge?: No
== END ==
CPT/HCPCS: 99211

== ENCOUNTER 2020-12-30 12:14 | Day surgery (SDC) | payer MEDICARE ==
[2020-12-26 16:19] VITALS: BMI 23.8
[2020-12-30 13:02] VITALS: TEMP 97.2
[2020-12-30] MEDS ORDERED: LIDOCAINE 1% (10MG/ML) FOR IV START INTRADERMA ONE (13:02)
[2020-12-30 13:04] LABS: Glucose,Whole Blood 107 mg/dL (75-99)
[2020-12-30] MEDS ORDERED: DEXAMETHASONE SOD PHOSPHATE 10 MG/ML 1 ML VIAL ONE (13:28)
[2020-12-30] MEDS ORDERED: IOPAMIDOL M200 10 ML VIAL ONE (13:28)
[2020-12-30] MEDS ORDERED: MIDAZOLAM 2 MG/2 ML VIAL ONE (13:28)
[2020-12-30] MEDS ORDERED: LIDOCAINE 1% INJ 10MG/ML (20 ML MDV) ONE (13:28)
[2020-12-30] MEDS ORDERED: fentaNYL (PF) 50 MCG/ML 2 ML AMP ONE (13:28)
--- NOTE | 2020-12-30 13:47 | P.PCN ---
Date of Procedure: 12/30/20 Surgeon: Vianey Yost Pathology: none sent Condition: stable Disposition: PACU Description of Procedure: PREOPERATIVE DIAGNOSIS: Lumbar radiculopathy POSTOPERATIVE DIAGNOSIS: Lumbar radiculopathy PROCEDURE 1. Transforaminal epidural steroid injection under fluoroscopic guidance at the L3-4 level on the right side 2. Lumbar epidurogram. SURGEON: Vianey Yost MD OPERATING ROOM RN: ANESTHESIA: Local with 1% lidocaine; IV sedation with Versed and fentanyl. EBL: Minimal PROCEDURE INDICATION: The patient with low back pain and radiculopathy symptoms unresponsive to conservative treatment. The patient had lumbar laminectomy with fusion L4 5 and L5-S1 levels and had difficulty doing into the target area because of the bony fusion at these levels and that's why I went at the L3 4 level on the right side and also correlates with his symptoms clinically. PROCEDURE DESCRIPTION / TECHNIQUE: The patient was seen and identified in the preoperative area. Risks, benefits, complications, and alternatives were discussed with the patient. The patient agreed to proceed with the procedure and signed the consent. IV was started, and vital signs were stable. Patient was taken to the OR and time out was completed. The patient was placed in the prone position on procedure table and a pillow was placed under the abdomen to reduce lumbar lordosis. The lumbosacral area was prepped and draped in the usual sterile fashion. Critical pause was taken. Vital signs were closely monitored during the procedure. Conscious sedation was used during the procedure to decrease patients anxiety. The vertebral body of the lumbar vertebra L3 was squared off by tilting the C-arm cephalad then the C-arm was tilted to the oblique position and the target point was at the 6 o'clock position of the pedicle of then skin and deeper tissues were localized with 1% lidocaine. Subsequently, a 22-gauge 3.5- inch spinal needle was advanced under a tunneled view fluoroscopic guidance just underneath the chin of the Chris dog at the . Under lateral fluoroscopy, the needle was then advanced to the middle of the upper one third of the foramen between(L3-4 ). After negative aspiration of CSF and blood and with no paresthesias, 1 mL of omnipaque contrast dye was injected excellent epidurogram and outlining of the L nerve root was identified. Subsequently, 2 mL of block solution containing 10 mg of Decadron and 1 mL of Lidocaine 1% PF was injected. Needle was removed and the same . At the end of the procedure, skin was cleansed, and bandages were applied. COMPLICATIONS: None COMMENTS: DISPOSITION / PLANS: The patient was placed in a supine position and transferred to the recovery area in a stable condition for observation. There was no evidence of lower extremity motor or sensory deficit after the procedure. Patient was discharged from the recovery room after meeting discharge criteria. Home discharge instructions were given to the patient by the staff.
[2020-12-30] MEDS ORDERED: IV FLUID CONTINUATION 300 ML IV ONE (13:48)
[2020-12-30 14:11] VITALS: BP 133/79; PULSE 70; RESP 20
--- NOTE | 2020-12-30 14:11 | FL ---
Fluoroscopy INDICATION: Pain FINDINGS: Fluoroscopy time: 17 seconds. Images obtained: 3. IMPRESSIONS: 1. Documentation of fluoroscopy.
== END 2020-12-30 14:18 | disposition home or self-care (01) ==
LOC: ORPAIN 12:14
PROVIDERS: ATTEND Anesthesiology
DX: M54.16 Radiculopathy, lumbar region (principal); E11.22 Type 2 diabetes mellitus with diabetic chronic kidney disease; N18.9 Chronic kidney disease, unspecified
CPT/HCPCS: 64483; J2250; J1100; J2001 ×2; J3010; Q9966; 64484; 99152

== ENCOUNTER → 2021-03-27 | Outpatient (CLI) | payer MEDICARE ==
--- NOTE | 2021-03-27 16:39 | XR ---
EXAMINATION TYPE: XR cervical spine w flex/ext DATE OF EXAM: 03/27/2021 COMPARISON: 04/25/2018 HISTORY: Neck pain TECHNIQUE: 5 view cervical spine supplemented with flexion and extension views. FINDINGS: There is severe left foraminal stenosis present C5-6 C6-7. Severe right foraminal stenosis is present C3-4 and C5-6. Odontoid is limited overlying maxilla. Prevertebral space is normal. There is disc space narrowing greatest at C5-6. Posterior spinal lamell ar line is intact. Vertebral body alignment is preserved through flexion and extension. IMPRESSION: 1. Degenerative disc changes. 2. Severe foraminal narrowing discussed above
== END | disposition home or self-care (01) ==
LOC: RADXRMAIN 10:38
PROVIDERS: ATTEND Internal Medicine
DX: M48.02 Spinal stenosis, cervical region (principal); M47.812 Spondylosis without myelopathy or radiculopathy, cervical region
CPT/HCPCS: 72052

== ENCOUNTER → 2023-05-11 | Outpatient (CLI) | payer MEDICARE ==
--- NOTE | 2023-05-11 12:20 | CT ---
EXAMINATION TYPE: CT ChestAbdPelvis wo con DATE OF EXAM: 05/11/2023 COMPARISON: 02/19/1960 HISTORY: Abnormal weight loss CT DLP: 421.10mGycm Unenhanced CT of the Chest, Abdomen and Pelvis Unenhanced CT of the chest ,abdomen and pelvis is performed. The lack of intravenous contrast limits evaluation of the solid and hollow viscera. Oral contrast: None CT Chest: LUNGS: Scattered calcified and noncalcified pulmonary nodules. Noncalcified nodule right upper lobe a nteriorly measuring 3 mm image 36 sequence 4. Noncalcified left upper lobe pulmonary nodule measuring 3 mm image 36 sequence 4 as well. The lungs are clear and free of infiltrate or atelectasis. No evid ence of pulmonary mass. Hyperinflation mild in degree compatible with COPD. No pleural effusion or CT evidence of interstitial lung disease. MEDIASTINUM: Thoracic aorta is of normal caliber. The heart is not enlarged. No evidence for media stinal mass or adenopathy. Calcified mediastinal lymph nodes. HILAR STRUCTURES: No evidence for mass. Calcified hilar lymph nodes. No hilar adenopathy is apprecia connor. Coronary artery calcifications. OTHER: No significant abnormality. CONTRAST CT ABDOMEN AND PELVIS: LIVER/GB: No calcified gallstones. Scattered hepatic calcifications present. No space occupying he patic lesion. Biliary tree is of normal caliber. PANCREAS: No inflammation. No distinct mass. SPLEEN: No splenic enlargement. No lesion seen. Splenic granulomas noted. ADRENALS: No nodule. No thickening. KIDNEYS/BLADDER: Mild atrophic change right kidney versus the left kidney. Approximately 4 right-radha ed renal calculi seen. Calculi measure up to 5.5 mm. No left-sided renal calculi. Chronic perinephric stranding. No hydronephrosis. No distinct renal mass. BOWEL: Normal appendix. Normal bowel caliber. No inflammation. GENITAL ORGANS: Mild prostate glandular enlargement. LYMPH NODES: No greater than 1cm abdominal or pelvic lymph nodes are appreciated. AORTA: No significant abnormality. OSSEOUS STRUCTURES: Patchy appearance of the thoracic segments and lumbar segments could be related t o degenerative change. Consider bone scan if felt to be indicated. No definite destructive bony lesio n. Postoperative changes. OTHER: No significant additional abnormality is seen. IMPRESSION: 1. Patchy appearance of the thoracic segments and lumbar segments could be related to degenerative ch gilma. Consider bone scan if felt to be indicated. No definite destructive bony lesion. 2. Primarily calcified pulmonary nodules although a couple nodules are noncalcified. Follow-up study in one year is advised. 3. Mild atrophic change right kidney with nonobstructing nephrolithiasis.
== END | disposition home or self-care (01) ==
LOC: RADCTMAIN 11:06
PROVIDERS: ATTEND Internal Medicine
DX: N20.0 Calculus of kidney (principal); N26.1 Atrophy of kidney (terminal); R63.4 Abnormal weight loss; R91.8 Other nonspecific abnormal finding of lung field
CPT/HCPCS: 71250; 74176